=== PATIENT | male | born 2000 | race Caucasian/White ===

== ENCOUNTER 2022-05-20 16:51 | Emergency (ER) | payer SELFPAY ==
[~2022-05-20] VITALS: Ht 182.8 cm; Wt 70.7 kg
--- NOTE | 2022-05-20 17:10 | ED GU-Male ---
General Chief Complaint: - Reproductive Stated Complaint: DISCHARGE AND TENDERNESS POSS STI Source: patient Exam Limitations: no limitations History of Present Illness Date Seen by Provider: May 20, 2022 Time Seen by Provider: 17:05 Initial Comments Patient is a previous healthy 22-year-old male who presents to the emergency department for evaluation of penile discharge and dysuria. Patient states he has sexual intercourse with a partner 2 days ago who later disclosed she tested positive for an STI. Patient states the sexual partner did not disclose exactly what STI. Patient states he attempted to communicate with the sexual partner via text but he was blocked and was unable to get any further information. Patient states the symptoms began yesterday and worsened today. He states he has some mild painful sensation at all times that is significantly worse when he urinates. He states the pain with urination is burning in nature. Denies any scrotal swelling or redness. Denies any abdominal pain. States the penile discharge is watery in consistency and white in color. Allergies and Home Medications Allergies Coded Allergies: No Known Drug Allergies (Unverified , 05/20/22) Patient Home Medication List Home Medication List Reviewed: Yes Review of Systems Review of Systems Constitutional: no symptoms reported EENTM: no symptoms reported Respiratory: no symptoms reported Cardiovascular: no symptoms reported Gastrointestinal: no symptoms reported Genitourinary: see HPI, burning, discharge, dysuria Musculoskeletal: no symptoms reported Skin: no symptoms reported Psychiatric/Neurological: No Symptoms Reported Endocrine: No Symptoms Reported Hematologic/Lymphatic: No Symptoms Reported Past Leaixms-Weskre-Ugjshq Hx Patient Social History Tobacco Use?: No Use of E-Cig and/or Vaping dev: Yes E-Cig or Vaping type used: Nicotine Substance use?: No Alcohol Use?: Yes Alcohol Frequency: Once in a while Pt feels they are or have been: No Immunizations Up To Date Influenza Vaccine Up-to-Date: No; Not Current First/Initial COVID19 Vaccinat: not vacc Past Medical History Surgery/Hospitalization HX: denies Physical Exam Vital Signs Vital Signs - First Documented 05/20/22 17:00 Temp 36.7 Pulse 100 Resp 18 B/P (MAP) 144/90 (108) Pulse Ox 100 O2 Delivery Room Air Capillary Refill : Height, Weight, BMI Height: '" Weight: lbs. oz. kg; BMI Method: General Appearance: WD/WN, no apparent distress HEENT: PERRL/EOMI, normal ENT inspection, TMs normal, pharynx normal Neck: non-tender, full range of motion, supple, normal inspection Cardiovascular: regular rate, rhythm Respiratory: chest non-tender, lungs clear, normal breath sounds Gastrointestinal: normal bowel sounds, non tender, soft, no organomegaly, no pulsatile mass Progress/Results/Core Measures Suspected Sepsis SIRS Temperature: Pulse: Respiratory Rate: Blood Pressure / Mean: Results/Orders Lab Results Laboratory Tests Test 05/20/22 17:05 Range/Units Urine Color YELLOW Urine Clarity SL CLOUDY Urine pH 7.0 5-9 Urine Specific [place] 1.025 H 1.016-1.022 Urine Protein NEGATIVE NEGATIVE Urine Glucose (UA) NEGATIVE NEGATIVE Urine Ketones NEGATIVE NEGATIVE Urine Nitrite NEGATIVE NEGATIVE Urine Bilirubin NEGATIVE NEGATIVE Urine Urobilinogen 0.2 < = 1.0 MG/DL Urine Leukocyte Esterase TRACE H NEGATIVE Urine RBC (Auto) NEGATIVE NEGATIVE Urine RBC RARE /HPF Urine WBC 10-25 H /HPF Urine Squamous Epithelial Cells RARE /HPF Urine Crystals NONE /LPF Urine Bacteria TRACE /HPF Urine Casts NONE /LPF Urine Mucus SMALL H /LPF Urine Culture Indicated YES My Orders Orders - YESICA MAGAÑA [employer] Chlamydia Trachomatis Urine (05/20/22 17:04) Neis Collin Dna Urine Test (05/20/22 17:04) Urinalysis (05/20/22 17:04) Ceftriaxone (Rocephin) (05/20/22 17:30) Lidocaine 1% Inj 20 Ml (Xylocaine 1% Inj (05/20/22 17:30) Urine Culture (05/20/22 17:05) Vital Signs/I&O 05/20/22 17:00 Temp 36.7 Pulse 100 Resp 18 B/P (MAP) 144/90 (108) Pulse Ox 100 O2 Delivery Room Air Capillary Refill : Progress Note : Progress Note Patient is nontoxic and well hydrated on exam. No abdominal TTP noted. Vital signs are reassuring. Pt ambulatory to the room without issue. Urine gc and chlamydia ordered as well as plain UA. UA notable for small pyuria. Pt treated with Rocephin and will be d/c'd home with 7 day course of doxycycline. Follow-up with PCP as needed. Abstain from sex until abd completed. Return precautions for urgent symptomology discussed. Departure Impression Primary Impression: Sexually transmitted disease Disposition: HOME, SELF-CARE Condition: Stable Departure-Patient Inst. Decision time for Depature: 17:45 Patient Instructions: Sexually-Transmitted Diseases Scripts Doxycycline Hyclate (Doxycycline Hyclate) 100 Mg Capsule 100 MG PO BID for 7 Days, #14 CAP 0 Refills Prov: YESICA MAGAÑA APRN 05/20/22 YESICA MAGAÑA APRN May 20, 2022 17:10
[2022-05-20 17:15] LABS: BILIRUBIN,URINE NEGATIVE (NEGATIVE); CLARITY,URINE SL CLOUDY; COLOR,URINE YELLOW; GLUCOSE, URINE (UA) NEGATIVE (NEGATIVE); KETONES,URINE NEGATIVE (NEGATIVE); LEUKOCYTE ESTERASE ,URINE TRACE (NEGATIVE); NITRITE,URINE NEGATIVE (NEGATIVE); PROTEIN,URINE NEGATIVE (NEGATIVE)
[2022-05-20 17:22] LABS: BACTERIA,URINE TRACE /HPF; RBC,URINE RARE /HPF; SQUAMOUS EPITHELIAL CELL,UR RARE /HPF
[2022-05-20] MEDS ORDERED: cefTRIAXone 500 MG/5 ML ML IM ONE (17:30)
[2022-05-20] MEDS ORDERED: LIDOCAINE 1% INJ 20 ML VIAL INJ ONE (17:30)
[2022-05-20] MEDS ORDERED: DOXY100C5 PO (17:47)
[2022-05-20 17:53] VITALS: BP 144/90
== END 2022-05-20 17:53 | disposition home or self-care (01) ==
LOC: ER 16:53
DX: A64 Unspecified sexually transmitted disease (principal); F17.290 Nicotine dependence, other tobacco product, uncomplicated
CPT/HCPCS: 36415; 81000; 87088; 87491; 87591; 99284